=== PATIENT | male | born 1995 | race Two or more races ===

== ENCOUNTER 2023-05-03 16:26 | Emergency (ER) | payer OTHER ==
[~2023-05-03] VITALS: Ht 177.8 cm; Wt 72.7 kg
[2023-05-03 18:55] VITALS: TEMP 97.8
[2023-05-03 19:13] VITALS: BP 174/86; PULSE 81; RESP 16
== END 2023-05-03 20:56 | disposition home or self-care (01) ==
LOC: EMS 16:28
DX: R10.9 Unspecified abdominal pain (principal)
CPT/HCPCS: 71045; 74176; 99284